=== PATIENT | female | born 1930 | race Caucasian/White ===

== ENCOUNTER 2017-01-02 06:08 | Inpatient (IN) | payer MEDICARE, OTHER ==
[2017-01-02] MEDS ORDERED: Albuterol/Ipratropium 3.0-0.5 MG/3 ML Neb Soln ONE (06:41)
[2017-01-02] MEDS ORDERED: Furosemide 100 MG/10 ML SDV ONE (06:46)
[2017-01-02] MEDS ORDERED: Morphine 2 MG/ML Syringe ONE (06:50)
[2017-01-02] MEDS ORDERED: Furosemide 100 MG/10 ML SDV IVPUSH ONE (06:57)
[2017-01-02] MEDS: Morphine 2 MG/ML Syringe IVPUSH PRN ×4 (06:58→07:15)
[2017-01-02] MEDS ORDERED: Albuterol/Ipratropium 3.0-0.5 MG/3 ML Neb Soln NEB ONE (06:58)
--- NOTE | 2017-01-02 07:22 | EDM.PDOC ---
ED HPI GENERAL MEDICAL PROBLEM - General Chief Complaint: General Stated Complaint: SOB Time Seen by Provider: 01/02/17 06:53 Source of Information: Reports: EMS, Family - History of Present Illness INITIAL COMMENTS - FREE TEXT/NARRATIVE: patient presents to ER in resp. failure, severe hypoxia. I spoke breifly with the daughter to establish code status, and she confirmed the patent was a DNR/ DNI. patient has a significant history of CHF, and has been progressive declining over the last month or so. I informed the daughter that without mechanical ventilation it is likely her mother would not survive this exacerbation. Daughter verbalized her understanding, and just wanted her mother to be comfortable. Onset: today Onset Date: 01/02/17 Duration: Minutes: Severity: severe Improves with: Reports: None Associated Symptoms: Reports: shortness of breath - Related Data Allergies Allergy/AdvReac Type Severity Reaction Status Date / Time Penicillins Allergy Rash Verified 01/02/17 07:06 procaine HCl [From Novocain] Allergy Shortness Verified 01/02/17 07:06 of Breath ACEINHIBITORS AdvReac Cough Verified 01/02/17 07:06 [ANOOP Inhibitors] acetaminophen [From Percocet] AdvReac Vomiting Verified 01/02/17 07:06 lisinopril AdvReac Nausea and Verified 01/02/17 07:06 Vomiting oxycodone HCl [From Percocet] AdvReac Vomiting Verified 01/02/17 07:06 simvastatin [From Zocor] AdvReac Nausea Verified 01/02/17 07:06 thiopental sodium AdvReac Lethargy Verified 01/02/17 07:06 [From Pentothal] zuleyka Allergy Shortness Uncoded 01/02/17 07:06 of Breath hormones AdvReac Abdominal Uncoded 01/02/17 07:06 Pain Home Meds: Home Meds Aspirin [Halfprin] 81 mg PO DAILY 09/14/15 [History] Bisoprolol/Hydrochlorothiazide [Ziac 5-6.25 MG] 1.5 tab PO DAILY 09/14/15 [ History] Fenofibrate 160 mg PO DAILY 09/14/15 [History] metFORMIN HCl [Metformin HCl] 1,000 mg PO BID 09/14/15 [History] Torsemide [Torsemide] 20 mg PO DAILY 01/02/17 [History] Past Medical History HEENT History: Reports: Impaired vision, Sinusitis Cardiovascular History: Reports: Aneurysm, Hypertension, Other (see below) Other Cardiovascular History: varicose veins EMERGENCY MEDICINE SPECIALIST History: Reports: Oncologic (Cancer) History: Reports: Other (see below) Other Oncologic History: skin cancer, unkown what type - Past Surgical History HEENT Surgical History: Reports: Cataract surgery Social & Family History - Family History Family Medical History: Noncontributory - Tobacco Use Smoking Status *Q: Never Smoker - Recreational Drug Use Recreational Drug Use: No ED ROS GENERAL - Review of Systems Review Of Systems: See Below Constitutional: Reports: diaphoresis HEENT: Reports: No symptoms Respiratory: Reports: Shortness of Breath Cardiovascular: Reports: No symptoms Endocrine: Reports: no symptoms GI/Abdominal: Reports: No symptoms Musculoskeletal: Reports: no symptoms Skin: Reports: mottled Neurological: Reports: Confusion Psychiatric: Reports: No symptoms ED EXAM, GENERAL - Physical Exam Exam: See Below Exam Limited By: Altered mental status General Appearance: severe distress, thin Respiratory/Chest: crackles, rales, rhonchi, accessory muscle use, prolonged expiration Cardiovascular: regular rate, rhythm GI/Abdominal: normal bowel sounds, soft Neurological: slow to respond Psychiatric: anxious Skin Exam: Cool, Cyanosis, Mottled (patient is slowly improveing with high flow oxygen, lasix and morphine, will continue to monitor.) Course - Orders/Labs/Meds Orders: Active Orders 24 hr Category Date Time Status RT Aerosol Therapy [RC] ASDIRECTED Care 01/02/17 06:58 Active CXR [Chest 1V Frontal] [CR] Stat Exams 01/02/17 06:57 Ordered Morphine Med 01/02/17 06:58 Active 2 mg IVPUSH Q20M PRN Medication Orders Morphine Sulfate (Morphine) 2 mg IVPUSH Q20M PRN PRN Reason: Anxiety Meds: Medications Generic Name Dose Route Start Last Admin Trade Name Freq PRN Reason Stop Dose Admin Morphine Sulfate 2 mg 01/02/17 06:58 Morphine IVPUSH Q20M PRN Anxiety Discontinued Medications Generic Name Dose Route Start Last Admin Trade Name Freq PRN Reason Stop Dose Admin Albuterol/Ipratropium Confirm 01/02/17 06:41 Duoneb 3.0-0.5 Mg/3 Ml Administered 01/02/17 06:42 Dose 3 ml .ROUTE .STK-MED ONE Albuterol/Ipratropium 3 ml 01/02/17 06:58 Duoneb 3.0-0.5 Mg/3 Ml NEB 01/02/17 06:59 ONETIME ONE Furosemide Confirm 01/02/17 06:46 Lasix Administered 01/02/17 06:47 Dose 100 mg .ROUTE .STK-MED ONE Furosemide 80 mg 01/02/17 06:57 Lasix IVPUSH 01/02/17 06:58 ONETIME ONE Morphine Sulfate Confirm 01/02/17 06:50 Morphine Administered 01/02/17 06:51 Dose 2 mg .ROUTE .STK-MED ONE Departure - Departure Time of Disposition: 07:36 Disposition: Admitted As Inpatient 66 Condition: serious Clinical Impression: CHF exacerbation Forms: ED Department Discharge - My Orders Last 24 Hours: My Active Orders 01/02/17 06:57 CXR [Chest 1V Frontal] [CR] Stat 01/02/17 06:58 RT Aerosol Therapy [RC] ASDIRECTED Morphine 2 mg IVPUSH Q20M PRN - Assessment/Plan Last 24 Hours: My Active Orders 01/02/17 06:57 CXR [Chest 1V Frontal] [CR] Stat 01/02/17 06:58 RT Aerosol Therapy [RC] ASDIRECTED Morphine 2 mg IVPUSH Q20M PRN
[2017-01-02] MEDS ORDERED: Acetaminophen 325 MG Tab PO PRN (08:26)
[2017-01-02] MEDS ORDERED: Ondansetron 4 MG/2 ML SDV IV PRN (08:26)
[2017-01-02 09:51] LABS: O2 DELIVERY DEVICE NON REBR MASK
[2017-01-02 09:52] LABS: BICARBONATE,ARTERIAL 22.1 mm/L (22.0-26.0); O2 FLOW RATE 10; O2 SATURATION ARTERIAL 96 % (95-98); PCO2 ARTERIAL 45 mm/Hg0 (35-45); PO2 ARTERIAL 95 mm/Hg (80-100)
[2017-01-02] MEDS: Enoxaparin 30 MG/0.3 ML Syringe SUBCUT SCH (13:36)
[2017-01-02] MEDS ORDERED: Furosemide 100 MG/10 ML SDV IVPUSH SCH (16:00)
[2017-01-02] MEDS ORDERED: Non-Formulary Medication 1 Each (Ezetimibe [Zetia] 10 MG) PO SCH (20:00)
[2017-01-02] MEDS: Furosemide 100 MG/10 ML SDV IVPUSH SCH (20:00)
[2017-01-03] MEDS: Furosemide 100 MG/10 ML SDV IVPUSH SCH ×2 (07:54→20:00)
[2017-01-03] MEDS: Aspirin 81 MG Tab.EC PO SCH (07:54)
[2017-01-03] MEDS: Enoxaparin 30 MG/0.3 ML Syringe SUBCUT SCH (07:54)
[2017-01-03] MEDS: Fenofibrate 160 MG Tab PO SCH (07:55)
[2017-01-03] MEDS ORDERED: metFORMIN 500 MG Tab PO SCH ×3 (08:00→17:30)
--- NOTE | 2017-01-03 09:01 | PN ---
DATE: 01/03/2017 S: Aylin Sanchez is an elderly white female, came in with acute left ventricular congestive heart failure. She was resuscitated in the ER then brought to the floor. O: GENERAL: This morning, the patient is alert and orientated, says she feels good. NECK: Supple. CHEST: Crepitus bilaterally, crackly. CARDIAC: Sounds are okay. EXTREMITIES: No edema. 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 ALEJANDRINA/KRYSTEN /[id number]
[2017-01-03] MEDS ORDERED: Iopamidol 755 Mg/ML 100 ML Bottle IVPUSH ONE (09:27)
[2017-01-03] MEDS: Potassium Chloride 10 MEQ Tab.ER PO SCH (17:40)
[2017-01-04] MEDS: Enoxaparin 30 MG/0.3 ML Syringe SUBCUT SCH (08:01)
[2017-01-04] MEDS: Aspirin 81 MG Tab.EC PO SCH (08:02)
[2017-01-04] MEDS: Furosemide 100 MG/10 ML SDV IVPUSH SCH ×2 (08:02→19:52)
[2017-01-04] MEDS: Potassium Chloride 10 MEQ Tab.ER PO SCH (08:02)
[2017-01-04] MEDS: Fenofibrate 160 MG Tab PO SCH (08:02)
--- NOTE | 2017-01-05 07:49 | PN ---
DATE: 01/04/2017 S: Aylin Sanchez came in with acute congestive heart failure. Says she feels better today. O: NECK: Supple. CHEST: Little crepitus bilaterally. CARDIAC: Sounds are better. EXTREMITIES: She has no edema. ASSESSMENT: ACUTE LEFT VENTRICULAR SYSTOLIC CONGESTIVE HEART FAILURE, RESOLVING. ECHO SHOWS EJECTION FRACTION OF 55%, SO SHE MAY HAVE SOMETHING LIKE BROKEN HEART SYNDROME. P: Continue IV Lasix. ALEJANDRINA/KRYSTEN /[id number]
[2017-01-05] MEDS: Furosemide 100 MG/10 ML SDV IVPUSH SCH (08:29)
[2017-01-05] MEDS: Fenofibrate 160 MG Tab PO SCH (08:30)
[2017-01-05] MEDS: Aspirin 81 MG Tab.EC PO SCH (08:30)
[2017-01-05] MEDS: Potassium Chloride 10 MEQ Tab.ER PO SCH (08:30)
[2017-01-05] MEDS: Enoxaparin 30 MG/0.3 ML Syringe SUBCUT SCH (08:31)
[2017-01-05 08:32] VITALS: BP 160/74
--- NOTE | 2017-01-08 07:51 | DISCH ---
HISTORY: This elderly white female, presents [facility] with severe sudden onset congestive heart failure. She was given IV morphine, IV Lasix in the ER and responded nicely. Admitted to the hospital, placed on telemetry, look good. Continue IV Lasix. At the time of discharge, chest was relatively clear. She felt great. Blood pressure was good. Panel looked good. ProBNP was 4300, I did not repeat that. Echocardiogram showed ejection fraction of 55% with moderate aortic regurgitation. Rest of the lab and x-ray as per chart. DISPOSITION: The patient discharged home. She will be seen in my clinic next week, at that time, we will do a panel 8 on her and re-evaluate her. DISCHARGE MEDICATIONS: Include home medications plus Lasix 40 b.i.d. DISCHARGE DIAGNOSIS: 1. LEFT VENTRICULAR SYSTOLIC CONGESTIVE HEART FAILURE. 2. DIABETES MELLITUS. 3. HYPERLIPIDEMIA. 4. HYPERTENSION. ALEJANDRINA/KRYSTEN /[id number]
== END 2017-01-05 13:00 | disposition home or self-care (01) | DRG 293 ==
LOC: CC.ED 06:08 → CC.MS 07:44 → UNDOADMIN 08:18 → CC.MS 08:26 → UNDOADMIN 08:26 → UNDODISIN 01-05 13:00
PROVIDERS: ADMIT Nurse Practitioner Family; ATTEND General Practice
DX: I50.9 Heart failure, unspecified (principal); I11.0 Hypertensive heart disease with heart failure; I50.1 Left ventricular failure, unspecified; E11.9 Type 2 diabetes mellitus without complications; Z79.84 Long term (current) use of oral hypoglycemic drugs; E78.5 Hyperlipidemia, unspecified; Z66 Do not resuscitate; Z79.82 Long term (current) use of aspirin; R79.1 Abnormal coagulation profile
CPT/HCPCS: 36415; 51702; 71010; 80053; 83880; 84484; 85025; 93005; 93010; 96374; 96375; 99285; J1940; J2270 ×4; 36600; 71275; 80048; 81001; 82803; 83735; 85379; 86140; 93306; 94760; 94761; A9270-GY; J1650; Q9967

== ENCOUNTER 2020-04-04 05:48 | Inpatient (IN) | payer MEDICARE, OTHER ==
[~2020-04-04 05:48] MED LIST: Albuterol/Ipratropium 3.0-0.5 MG/3 ML Neb Soln ONE
[2020-04-04] MEDS ORDERED: Furosemide 40 MG/4 ML VIAL ONE (05:52)
[2020-04-04] MEDS ORDERED: methylPREDNISolone Sodium Succinate 125 MG/2 ML SDV ONE (05:52)
[2020-04-04] MEDS ORDERED: Morphine 2 MG/ML SYRINGE ONE (05:53)
[2020-04-04] MEDS ORDERED: Albuterol/Ipratropium 3.0-0.5 MG/3 ML Neb Soln NEB ONE (06:00)
[2020-04-04] MEDS ORDERED: Furosemide 40 MG/4 ML VIAL IVPUSH ONE (06:08)
[2020-04-04] MEDS ORDERED: methylPREDNISolone Sodium Succinate 125 MG/2 ML SDV IVPUSH ONE (06:08)
[2020-04-04] MEDS ORDERED: Morphine 2 MG/ML SYRINGE IVPUSH ONE (06:08)
[2020-04-04] MEDS ORDERED: Nitroglycerin/D5W 25 MG/250 ML BOTTLE IV SCH (06:30)
--- NOTE | 2020-04-04 07:05 | EDM.PDOC ---
ED HPI GENERAL MEDICAL PROBLEM - General Chief Complaint: Respiratory Problem Stated Complaint: difficulty breathing Time Seen by Provider: 04/04/20 06:08 Source of Information: Reports: Patient, Family History Limitations: Reports: Respiratory Distress - History of Present Illness INITIAL COMMENTS - FREE TEXT/NARRATIVE: Patient presents per EMS with complaints of shortness of breath. States awoke approximately 2 hours prior with sudden onset SOB. Called EMS as symptoms were not improving. Oxygen sats on arrival were 75% on room air. Was given neb treatment immediately on arrival. Daughter able to provide more history. Does have CHF, had this happen 3 years ago as well and "didn't think she was going to make it then, they gave her 10 minutes but she pulled through". Does normally take 40 mg of Lasix daily, has been compliant with her meds. Is DNR/DNI. Onset: Today, Sudden Duration: Hour(s):, Constant Location: Reports: Chest Severity: Severe Associated Symptoms: Reports: Cough, Malaise, Shortness of Breath, Weakness. Denies: Confusion, Chest Pain, cough w sputum, Diaphoresis, Headaches, Nausea/Vomiting Treatments WELDER METAL FAB: Reports: Oxygen, See EMS Report - Related Data Allergies Allergy/AdvReac Type Severity Reaction Status Date / Time Penicillins Allergy Rash Verified 04/04/20 06:21 procaine HCl [From Novocain] Allergy Shortness Verified 04/04/20 06:21 of Breath ACEINHIBITORS AdvReac Cough Verified 04/04/20 06:21 [ANOOP Inhibitors] lisinopril AdvReac Nausea and Verified 04/04/20 06:21 Vomiting oxycodone HCl [From Percocet] AdvReac Vomiting Verified 04/04/20 06:21 simvastatin [From Zocor] AdvReac Nausea Verified 04/04/20 06:21 thiopental sodium AdvReac Lethargy Verified 04/04/20 06:21 [From Pentothal] zuleyka Allergy Shortness Uncoded 04/04/20 06:21 of Breath hormones AdvReac Abdominal Uncoded 04/04/20 06:21 Pain Home Meds: Home Meds Aspirin [Halfprin] 81 mg PO BEDTIME 09/14/15 [History] Bisoprolol/Hydrochlorothiazide [Ziac 5-6.25 MG] 1 each PO QAM 01/03/17 [History] metFORMIN [Glucophage] 500 mg PO BID 01/03/17 [History] Potassium Chloride [Klor-Con 10] 20 meq PO DAILY #30 tab.er 01/05/17 [Rx] Cholecalciferol (Vitamin D3) [Vitamin D] 5,000 unit PO DAILY 04/04/20 [History] Ferrous Sulfate [Iron] 325 mg PO BID 04/04/20 [History] Flaxseed Oil [Flax Oil] 1,000 mg PO BEDTIME 04/04/20 [History] Furosemide [Lasix] 40 mg PO DAILY 04/04/20 [History] Losartan [Cozaar] 50 mg PO BID 04/04/20 [History] Magnesium 250 mg PO BID 04/04/20 [History] Ubidecarenone [Co Q-10] 100 mg PO BID 04/04/20 [History] Vit C/E/Zn/Coppr/Lutein/Zeaxan [Preservision Areds 2 Softgel] 1 tab PO DAILY 04/04/20 [History] cloNIDine [Catapres] 0.1 mg PO BID 04/04/20 [History] Past Medical History HEENT History: Reports: Impaired Vision, Sinusitis Cardiovascular History: Reports: Aneurysm, Heart Murmur, Hypertension, Other (See Below) Other Cardiovascular History: varicose veins [employer] History: Reports: Hematologic History: Reports: Other (See Below) Other Hematologic History: positive factor 5 leiden Oncologic (Cancer) History: Reports: Other (See Below) Other Oncologic History: skin cancer, unkown what type - Past Surgical History HEENT Surgical History: Reports: Cataract Surgery Social & Family History - Family History Family Medical History: Noncontributory - Caffeine Use Caffeine Use: Reports: Coffee Other Caffeine Use: 1 cpd ED ROS GENERAL - Review of Systems Review Of Systems: See Below Constitutional: Reports: Malaise, Weakness, Fatigue. Denies: Fever, Chills HEENT: Denies: Ear Pain, Rhinitis, Sinus Problem, Throat Pain Respiratory: Reports: Shortness of Breath, Cough Cardiovascular: Denies: Chest Pain, Edema, Lightheadedness Endocrine: Reports: Fatigue GI/Abdominal: Denies: Abdominal Pain, Constipation, Diarrhea, Nausea, Vomiting : Reports: No Symptoms Musculoskeletal: Reports: No Symptoms Skin: Reports: No Symptoms Neurological: Reports: No Symptoms ED EXAM, GENERAL - Physical Exam Exam: See Below Exam Limited By: Respiratory Distress General Appearance: Alert, WD/WN, Severe Distress Ears: Normal External Exam, Normal TMs Nose: Normal Inspection, Normal Mucosa, No Blood Throat/Mouth: Normal Inspection, Normal Oropharynx Head: Normocephalic Neck: Normal Inspection, Supple, Non-Tender Respiratory/Chest: Respiratory Distress, Crackles Cardiovascular: Regular Rate, Rhythm GI/Abdominal: Normal Bowel Sounds, Soft, Non-Tender Extremities: Normal Inspection, No Pedal Edema Neurological: Alert, Oriented Skin Exam: Warm, Dry Course - Vital Signs Last Recorded V/S: Last Vital Signs Temp 95.9 F L 04/04/20 06:15 Pulse 71 04/04/20 07:45 Resp 34 H 04/04/20 07:45 BP 101/60 04/04/20 07:45 Pulse Ox 92 L 04/04/20 07:45 - Orders/Labs/Meds Orders: Active Orders 24 hr Category Date Time Status RT Aerosol Therapy [RC] ASDIRECTED Care 04/04/20 06:30 Active Urinary Catheter Assessment [RC] ASDIRECTED Care 04/04/20 07:03 Active Urinary Catheter Insertion [Insert Urinary Catheter] [ Care 04/04/20 07:15 Ordered OM.PC] Q24H Chest 1V Frontal [CR] Routine Exams 04/04/20 Taken Nitroglycerin/D5W [Nitroglycerin 25 MG/D5W 250 ML] Med 04/04/20 06:30 Active 25 mg in 250 ml IV TITRATE Medication Orders Nitroglycerin/Dextrose (Nitroglycerin 25 Mg/D5w 250 Ml) 25 mg in 250 mls @ 6 m ls/hr IV TITRATE LANIE; Protocol Last Infusion: 04/04/20 07:15 Dose: 5 mcg/min, 3 mls/hr Documented by: Infusion: 04/04/20 06:48 Dose: 10 mcg/min, 6 mls/hr Documented by: Admin: 04/04/20 06:30 Dose: 5 mcg/min, 3 mls/hr Documented by: MICHAEL Labs: Laboratory Tests 04/04/20 04/04/20 04/04/20 Range/Units 06:35 06:35 06:35 WBC 18.6 H (5.0-10.0) 10^3/uL RBC 4.53 (4.00-5.50) 10^6/uL Hgb 13.8 (12.0-16.0) g/dL Hct 42.8 (37.0-47.0) % MCV 94.5 H (82.0-94.0) fL MCH 30.5 (27.0-32.0) pg MCHC 32.2 L (33.0-38.0) g/dL RDW Coeff of Leilani 13.4 (11.0-15.0) % Plt Count 297 (150-400) 10^3/uL Neut % (Auto) 31.8 L (35-85) % Lymph % (Auto) 60.5 H (10-55) % [place] % (Auto) 5.7 (0-16) % Eos % (Auto) 1.8 (0-5) % Baso % (Auto) 0.2 (0-3) % Neut # (Auto) 5.91 (1.80-7.00) 10^3/uL Lymph # (Auto) 11.25 H (1.00-4.80) 10^3/uL [place] # (Auto) 1.06 H (0.00-0.80) 10^3/uL Eos # (Auto) 0.34 (0.00-0.45) 10^3/uL Baso # (Auto) 0.03 10^3/uL D-Dimer, Quantitative 14.13 H (0.00-0.50) Sodium 137 (136-145) mEq/L Potassium 4.1 (3.5-5.0) mEq/L Chloride 100 (98-106) mEq/L Carbon Dioxide 22 (21-32) mmol/L BUN 38 H (7-18) mg/dL Creatinine 1.8 H (0.6-1.0) mg/dL Est Cr Clr Drug Dosing 18.30 mL/min Estimated GFR (MDRD) 26 L (>=60) mL/min Glucose 446 H* D (75-99) mg/dL Calcium 8.9 (8.4-10.1) mg/dL Total Bilirubin 0.4 (0.0-1.0) mg/dL AST 17 (15-37) U/L ALT 16 (12-78) U/L Alkaline Phosphatase 87 (46-116) U/L Lactate Dehydrogenase 181 (100-190) U/L Creatine Kinase 49 (21-215) U/L Troponin I 0.120 H (0.00-0.06) ng/mL C-Reactive Protein 0.2 (0.2-0.8) mg/dL NT-Pro-B Natriuret Pep 3022 H (0-1000) pg/mL Total Protein 7.7 (6.4-8.2) g/dL Albumin 3.6 (3.4-5.0) g/dL COVID-19 (ALEXI) (NEGATIVE) 04/04/20 Range/Units 07:12 WBC (5.0-10.0) 10^3/uL RBC (4.00-5.50) 10^6/uL Hgb (12.0-16.0) g/dL Hct (37.0-47.0) % MCV (82.0-94.0) fL MCH (27.0-32.0) pg MCHC (33.0-38.0) g/dL RDW Coeff of Leilani (11.0-15.0) % Plt Count (150-400) 10^3/uL Neut % (Auto) (35-85) % Lymph % (Auto) (10-55) % [place] % (Auto) (0-16) % Eos % (Auto) (0-5) % Baso % (Auto) (0-3) % Neut # (Auto) (1.80-7.00) 10^3/uL Lymph # (Auto) (1.00-4.80) 10^3/uL [place] # (Auto) (0.00-0.80) 10^3/uL Eos # (Auto) (0.00-0.45) 10^3/uL Baso # (Auto) 10^3/uL D-Dimer, Quantitative (0.00-0.50) Sodium (136-145) mEq/L Potassium (3.5-5.0) mEq/L Chloride (98-106) mEq/L Carbon Dioxide (21-32) mmol/L BUN (7-18) mg/dL Creatinine (0.6-1.0) mg/dL Est Cr Clr Drug Dosing mL/min Estimated GFR (MDRD) (>=60) mL/min Glucose (75-99) mg/dL Calcium (8.4-10.1) mg/dL Total Bilirubin (0.0-1.0) mg/dL AST (15-37) U/L ALT (12-78) U/L Alkaline Phosphatase (46-116) U/L Lactate Dehydrogenase (100-190) U/L Creatine Kinase (21-215) U/L Troponin I (0.00-0.06) ng/mL C-Reactive Protein (0.2-0.8) mg/dL NT-Pro-B Natriuret Pep (0-1000) pg/mL Total Protein (6.4-8.2) g/dL Albumin (3.4-5.0) g/dL COVID-19 (ALEXI) Negative (NEGATIVE) Meds: Medications Generic Name Dose Route Start Last Admin Trade Name Freq PRN Reason Stop Dose Admin Nitroglycerin/Dextrose 25 mg in 250 mls @ 6 mls/hr 04/04/20 06:30 04/04/20 07:15 Nitroglycerin 25 Mg/D5w 250 Ml IV 5 mcg/min TITRATE LANIE 3 mls/hr Infusion Protocol 10 MCG/MIN Discontinued Medications Generic Name Dose Route Start Last Admin Trade Name Freq PRN Reason Stop Dose Admin Albuterol/Ipratropium Confirm 04/04/20 05:39 04/04/20 06:37 Duoneb 3.0-0.5 Mg/3 Ml Administered 04/04/20 05:40 Not Given Dose 3 ml .ROUTE .STK-MED ONE Albuterol/Ipratropium 3 ml 04/04/20 06:00 04/04/20 05:50 Duoneb 3.0-0.5 Mg/3 Ml NEB 04/04/20 06:01 3 ml ONETIME ONE Administration Furosemide Confirm 04/04/20 05:52 04/04/20 06:37 Lasix Administered 04/04/20 05:53 Not Given Dose 40 mg .ROUTE .STK-MED ONE Furosemide 40 mg 04/04/20 06:08 04/04/20 06:12 Lasix IVPUSH 04/04/20 06:09 40 mg ONETIME ONE Administration Methylprednisolone Sodium Succinate Confirm 04/04/20 05:52 04/04/20 06:38 Solu-Medrol Administered 04/04/20 05:53 Not Given Dose 125 mg .ROUTE .STK-MED ONE Methylprednisolone Sodium Succinate 125 mg 08/02/20 06:08 04/04/20 06:12 Solu-Medrol IVPUSH 04/04/20 06:09 125 mg ONETIME ONE Administration Morphine Sulfate Confirm 04/04/20 05:53 04/04/20 06:38 Morphine Administered 04/04/20 05:54 Not Given Dose 2 mg .ROUTE .STK-MED ONE Morphine Sulfate 1 mg 04/04/20 06:08 04/04/20 06:12 Morphine IVPUSH 04/04/20 06:09 1 mg ONETIME ONE Administration - Re-Assessments/Exams Free Text/Narrative Re-Assessment/Exam: 04/04/20 07:00 Patient is breathing easier now. conversing with family by phone. Still tachypneic. Oxygen sat 89-90% on 15 liters. Has been given Lasix 40 mg IV, duoneb treatment, Solu Medrol and now on a nitro drip. Blood pressure not tolerating the nitro drip and did have to be reduced from 10 to 5 mcg as dropped to 90s/50s. Lab results reviewed. WBC is high at 18.6. Creatinine 1.8. ProBNP 3022. Troponin 0.120. Admission versus transfer discussed with daughter now that is resting a bit more comfortably. Daughter states would like to keep her here. Is aware that would have more intensive care at tertiary facility but expresses mostly just wants to be kept comfortable. Is a DNR/DNI. 04/04/20 08:06 Patient is improving. Oxygen sats are 92% on 10 liters now. Color improved. Blood pressure maintaining on 5 mcg. Will admit to inpatient. Departure - Departure Time of Disposition: 08:08 Disposition: Admitted As Inpatient 66 Condition: Poor Clinical Impression: Pulmonary edema, Respiratory distress CHF exacerbation Qualifiers: Qualified Code(s): I50.23 - Acute on chronic systolic (congestive) heart failure - Discharge Information *PRESCRIPTION DRUG MONITORING PROGRAM REVIEWED*: No *COPY OF PRESCRIPTION DRUG MONITORING REPORT IN PATIENT LUKE: No Forms: ED Department Discharge Sepsis Event Note (ED) - Evaluation Sepsis Screening Result: No Definite Risk - Focused Exam Vital Signs: Vital Signs Temp Pulse Resp BP Pulse Ox 04/04/20 07:45 71 34 H 101/60 92 L 04/04/20 07:30 75 35 H 103/64 92 L 04/04/20 07:15 77 38 H 94/60 91 L 04/04/20 07:09 86 32 H 102/70 88 L 04/04/20 06:57 85 40 H 138/75 88 L 04/04/20 06:44 96 42 H 157/83 H 86 L 04/04/20 06:26 101 H 40 H 186/92 H 89 L 04/04/20 06:20 105 H 43 H 187/98 H 90 L 04/04/20 06:15 95.9 F L 105 H 42 H 186/87 H 85 L - Problem List & Annotations (1) Respiratory distress SNOMED Code(s): 299401825 Code(s): R06.03 - ACUTE RESPIRATORY DISTRESS Status: Acute Priority: High Current Visit: Yes (2) Pulmonary edema SNOMED Code(s): 54156034 Code(s): J81.1 - CHRONIC PULMONARY EDEMA Status: Acute Priority: High Current Visit: Yes (3) CHF exacerbation SNOMED Code(s): 696942008, 35576127518374 Code(s): I50.9 - HEART FAILURE, UNSPECIFIED Status: Acute Priority: High Current Visit: Yes Qualifiers: Qualified Code(s): I50.23 - Acute on chronic systolic (congestive) heart failure (4) Palliative care patient SNOMED Code(s): 803834523, 266056780 Code(s): Z51.5 - ENCOUNTER FOR PALLIATIVE CARE Status: Acute Priority: High Current Visit: Yes - Problem List Review Problem List Initiated/Reviewed/Updated: Yes - My Orders Last 24 Hours: My Active Orders 04/04/20 Chest 1V Frontal [CR] Routine 04/04/20 06:30 RT Aerosol Therapy [RC] ASDIRECTED Nitroglycerin/D5W [Nitroglycerin 25 MG/D5W 250 ML] 25 mg in 250 ml IV TITRATE 04/04/20 07:03 Urinary Catheter Assessment [RC] ASDIRECTED 04/04/20 07:15 Urinary Catheter Insertion [Insert Urinary Catheter] [OM.PC] Q24H - Assessment/Plan Admission H&P: Please use this note as an admission H&P Last 24 Hours: My Active Orders 04/04/20 Chest 1V Frontal [CR] Routine 04/04/20 06:30 RT Aerosol Therapy [RC] ASDIRECTED Nitroglycerin/D5W [Nitroglycerin 25 MG/D5W 250 ML] 25 mg in 250 ml IV TITRATE 04/04/20 07:03 Urinary Catheter Assessment [RC] ASDIRECTED 04/04/20 07:15 Urinary Catheter Insertion [Insert Urinary Catheter] [OM.PC] Q24H Assessment:: Pulmonary edema CHF exacerbation Palliative care patient Plan: Admit inpatient. Continue IV Lasix BID. Nitro drip. Will give Lovenox dose today to cover for PE as d-dimer is high and unable to do CTA due to creatinine/kidney function. Again discussed with daughter about transfer for other studies to determine if has PE, does not want transfer. Wants her to be comfortable. "every extra day with her is a blessing"
[2020-04-04] MEDS ORDERED: Acetaminophen 325 MG Tab PO PRN (09:01)
[2020-04-04] MEDS ORDERED: Enoxaparin 80 MG/0.8 ML Syringe SUBCUT ONE (09:01)
[2020-04-04] MEDS ORDERED: Sodium Chloride 0.9% 10 ML Syringe FLUSH PRN (09:01)
[2020-04-04] MEDS ORDERED: Ondansetron 4 MG Tab.DIS PO PRN (09:01)
[2020-04-04] MEDS ORDERED: Ondansetron 4 MG/2 ML SDV IV PRN (09:01)
[2020-04-04] MEDS ORDERED: Enoxaparin 60 MG/0.6 ML Syringe SUBCUT ONE (09:37)
[2020-04-04] MEDS ORDERED: Nitroglycerin 2% Oint 1 GM UD Packet TOP SCH (10:00)
[2020-04-04] MEDS: Nitroglycerin 2% Oint 1 GM UD Packet TOP SCH ×2 (10:56→17:25)
[2020-04-04] MEDS: metFORMIN 500 MG Tab PO SCH (17:25)
[2020-04-04] MEDS: Aspirin 81 MG Tab.EC PO SCH (19:42)
[2020-04-04] MEDS: cloNIDine 0.1 MG Tab PO SCH ×2 (19:42→19:51)
[2020-04-04] MEDS: Ferrous Sulfate 324 MG Tab.EC PO SCH (19:43)
[2020-04-04] MEDS: Furosemide 40 MG/4 ML VIAL IVPUSH SCH (19:44)
[2020-04-04] MEDS: Losartan 25 MG Tab PO SCH (19:51)
[2020-04-04] MEDS ORDERED: Non-Formulary Medication 1 Each (Ubidecarenone [Co Q-10] 100 MG) PO SCH (20:00)
[2020-04-05] MEDS: Nitroglycerin 2% Oint 1 GM UD Packet TOP SCH ×3 (01:00→17:03)
[2020-04-05] MEDS: Potassium Chloride 10 MEQ Tab.ER PO SCH (07:32)
[2020-04-05] MEDS: Cholecalciferol (Vitamin D3) 25 MCG Tab PO SCH (07:32)
[2020-04-05] MEDS: Furosemide 40 MG/4 ML VIAL IVPUSH SCH ×2 (07:32→18:49)
[2020-04-05] MEDS: Losartan 25 MG Tab PO SCH ×2 (07:32→20:01)
[2020-04-05] MEDS: cloNIDine 0.1 MG Tab PO SCH (07:33)
[2020-04-05] MEDS: Ferrous Sulfate 324 MG Tab.EC PO SCH ×2 (07:53→20:01)
[2020-04-05] MEDS: metFORMIN 500 MG Tab PO SCH ×2 (08:08→17:03)
[2020-04-05] MEDS: Enoxaparin 60 MG/0.6 ML Syringe SUBCUT SCH (09:37)
--- NOTE | 2020-04-05 11:04 | PCM.PN ---
- General Info Date of Service: 04/05/20 Admission Dx/Problem (Free Text): CHF exacerbation Elevated D-dimer Elevated Troponin Functional Status: Reports: Pain Controlled - Review of Systems General: Reports: No Symptoms HEENT: Reports: No Symptoms Pulmonary: Reports: Shortness of Breath. Denies: Pleuritic Chest Pain Cardiovascular: Reports: Dyspnea on Exertion (chronic). Denies: Chest Pain Gastrointestinal: Reports: No Symptoms Genitourinary: Reports: No Symptoms Musculoskeletal: Reports: No Symptoms Neurological: Reports: No Symptoms Psychiatric: Reports: No Symptoms - Patient Data Vitals - Most Recent: Last Vital Signs Temp 98.1 F 04/05/20 08:00 Pulse 72 04/05/20 04:00 Resp 20 04/05/20 08:00 BP 127/55 L 04/05/20 08:00 Pulse Ox 92 L 04/05/20 08:00 Weight - Most Recent: 128 lb 12.8 oz I&O - Last 24 Hours: Intake & Output 04/04/20 04/05/20 04/05/20 22:59 06:59 14:59 Intake Total 900 700 Output Total 600 975 800 Balance 300 -275 -800 Lab Results Last 24 Hours: Laboratory Results - last 24 hr 04/04/20 04/04/20 04/05/20 Range/Units 12:05 21:32 07:25 WBC 13.1 H (5.0-10.0) 10^3/uL RBC 3.85 L (4.00-5.50) 10^6/uL Hgb 11.6 L (12.0-16.0) g/dL Hct 35.6 L (37.0-47.0) % MCV 92.5 (82.0-94.0) fL MCH 30.1 (27.0-32.0) pg MCHC 32.6 L (33.0-38.0) g/dL RDW Coeff of Leilani 13.2 (11.0-15.0) % Plt Count 198 (150-400) 10^3/uL Neut % (Auto) 77.4 (35-85) % Lymph % (Auto) 14.2 (10-55) % [place] % (Auto) 8.1 (0-16) % Eos % (Auto) 0.2 (0-5) % Baso % (Auto) 0.1 (0-3) % Neut # (Auto) 10.11 H (1.80-7.00) 10^3/uL Lymph # (Auto) 1.85 (1.00-4.80) 10^3/uL [place] # (Auto) 1.06 H (0.00-0.80) 10^3/uL Eos # (Auto) 0.02 (0.00-0.45) 10^3/uL Baso # (Auto) 0.01 10^3/uL Sodium (136-145) mEq/L Potassium (3.5-5.0) mEq/L Chloride (98-106) mEq/L Carbon Dioxide (21-32) mmol/L BUN (7-18) mg/dL Creatinine (0.6-1.0) mg/dL Est Cr Clr Drug Dosing mL/min Estimated GFR (MDRD) (>=60) mL/min Glucose (75-99) mg/dL POC Glucose 277 H (75-105) mg/dl Calcium (8.4-10.1) mg/dL Troponin I 39.427 H* (0.00-0.06) ng/mL NT-Pro-B Natriuret Pep (0-1000) pg/mL 04/05/20 Range/Units 07:25 WBC (5.0-10.0) 10^3/uL RBC (4.00-5.50) 10^6/uL Hgb (12.0-16.0) g/dL Hct (37.0-47.0) % MCV (82.0-94.0) fL MCH (27.0-32.0) pg MCHC (33.0-38.0) g/dL RDW Coeff of Leilani (11.0-15.0) % Plt Count (150-400) 10^3/uL Neut % (Auto) (35-85) % Lymph % (Auto) (10-55) % [place] % (Auto) (0-16) % Eos % (Auto) (0-5) % Baso % (Auto) (0-3) % Neut # (Auto) (1.80-7.00) 10^3/uL Lymph # (Auto) (1.00-4.80) 10^3/uL [place] # (Auto) (0.00-0.80) 10^3/uL Eos # (Auto) (0.00-0.45) 10^3/uL Baso # (Auto) 10^3/uL Sodium 138 (136-145) mEq/L Potassium 4.1 (3.5-5.0) mEq/L Chloride 101 (98-106) mEq/L Carbon Dioxide 25 (21-32) mmol/L BUN 40 H (7-18) mg/dL Creatinine 1.5 H (0.6-1.0) mg/dL Est Cr Clr Drug Dosing 21.96 mL/min Estimated GFR (MDRD) 33 L (>=60) mL/min Glucose 150 H D (75-99) mg/dL POC Glucose (75-105) mg/dl Calcium 9.3 (8.4-10.1) mg/dL Troponin I 17.345 H* (0.00-0.06) ng/mL NT-Pro-B Natriuret Pep 20491 H (0-1000) pg/mL Med Orders - Current: Current Medications Acetaminophen (Tylenol) 650 mg PO Q4H PRN PRN Reason: Pain (Mild 1-3)/fever Aspirin (Halfprin) 81 mg PO BEDTIME [facility] Last Admin: 04/04/20 19:42 Dose: 81 mg Documented by: Bisoprolol Fumarate/HCTZ (Ziac 5-6.25 Mg) 1 tab PO QAM [facility] Last Admin: 04/05/20 07:53 Dose: 1 tab Documented by: Cholecalciferol (Vitamin D3) 125 mcg PO DAILY [facility] Last Admin: 04/05/20 07:32 Dose: 125 mcg Documented by: Enoxaparin Sodium (Lovenox) 60 mg SUBCUT DAILY [facility] Last Admin: 04/05/20 09:37 Dose: 60 mg Documented by: Ferrous Sulfate (Ferrous Sulfate) 324 mg PO BID [facility] Last Admin: 04/05/20 07:53 Dose: 324 mg Documented by: Furosemide (Lasix) 40 mg IVPUSH BID [facility] Last Admin: 04/05/20 07:32 Dose: 40 mg Documented by: Losartan Potassium (Cozaar) 50 mg PO BID [facility] Last Admin: 04/05/20 07:32 Dose: 50 mg Documented by: Magnesium Oxide (Magnesium Oxide) 250 mg PO BID@1000,2200 [facility] Last Admin: 04/05/20 09:37 Dose: 250 mg Documented by: Metformin HCl (Glucophage) 500 mg PO BIDMEALS [facility] Last Admin: 04/05/20 08:08 Dose: 500 mg Documented by: Nitroglycerin (Nitro-Bid 2%) 0 gm TOP Q8H [facility] Last Admin: 04/05/20 09:37 Dose: 1 gm Documented by: Ondansetron HCl (Zofran Odt) 4 mg PO Q4H PRN PRN Reason: nausea, able to take PO Ondansetron HCl (Zofran) 4 mg IV Q4H PRN PRN Reason: Nausea/Vomiting Potassium Chloride (Klor-Con 10) 20 meq PO DAILY [facility] Last Admin: 04/05/20 07:32 Dose: 20 meq Documented by: Sodium Chloride (Saline Flush) 10 ml FLUSH ASDIRECTED PRN PRN Reason: Keep Vein Open Discontinued Medications Albuterol/Ipratropium (Duoneb 3.0-0.5 Mg/3 Ml) Confirm Administered Dose 3 ml .ROUTE .STK-MED ONE Stop: 04/04/20 05:40 Last Admin: 04/04/20 06:37 Dose: Not Given Documented by: Albuterol/Ipratropium (Duoneb 3.0-0.5 Mg/3 Ml) 3 ml NEB ONETIME ONE Stop: 04/04/20 06:01 Last Admin: 04/04/20 05:50 Dose: 3 ml Documented by: Clonidine HCl (Catapres) 0.1 mg PO BID [facility] Last Admin: 04/05/20 07:33 Dose: 0.1 mg Documented by: Enoxaparin Sodium (Lovenox) 80 mg SUBCUT NOW ONE Stop: 04/04/20 09:02 Last Admin: 04/04/20 10:22 Dose: Not Given Documented by: Enoxaparin Sodium (Lovenox) 60 mg SUBCUT NOW ONE Stop: 04/04/20 09:38 Last Admin: 04/04/20 10:55 Dose: 60 mg Documented by: Furosemide (Lasix) Confirm Administered Dose 40 mg .ROUTE .STK-MED ONE Stop: 04/04/20 05:53 Last Admin: 04/04/20 06:37 Dose: Not Given Documented by: Furosemide (Lasix) 40 mg IVPUSH ONETIME ONE Stop: 04/04/20 06:09 Last Admin: 04/04/20 06:12 Dose: 40 mg Documented by: Nitroglycerin/Dextrose (Nitroglycerin 25 Mg/D5w 250 Ml) 25 mg in 250 mls @ 6 mls/hr IV TITRATE LANIE; Protocol Last Infusion: 04/04/20 07:15 Dose: 5 mcg/min, 3 mls/hr Documented by: Methylprednisolone Sodium Succinate (Solu-Medrol) Confirm Administered Dose 125 mg .ROUTE .STK-MED ONE Stop: 04/04/20 05:53 Last Admin: 04/04/20 06:38 Dose: Not Given Documented by: Methylprednisolone Sodium Succinate (Solu-Medrol) 125 mg IVPUSH ONETIME ONE Stop: 04/04/20 06:09 Last Admin: 04/04/20 06:12 Dose: 125 mg Documented by: Morphine Sulfate (Morphine) Confirm Administered Dose 2 mg .ROUTE .STK-MED ONE Stop: 04/04/20 05:54 Last Admin: 04/04/20 06:38 Dose: Not Given Documented by: Morphine Sulfate (Morphine) 1 mg IVPUSH ONETIME ONE Stop: 04/04/20 06:09 Last Admin: 04/04/20 06:12 Dose: 1 mg Documented by: Nitroglycerin (Nitro-Bid 2%) 0 gm TOP Q8H [facility] Non-Formulary Medication (Ubidecarenone [Co Q-10]) 100 mg PO BID [facility] - Exam General: Alert, Oriented Lungs: Normal Respiratory Effort, Crackles (clearing). No: Stridor, Wheezing Cardiovascular: Regular Rate, Regular Rhythm GI/Abdominal Exam: Normal Bowel Sounds, Soft, Non-Tender Extremities: Normal Inspection, Non-Tender, No Pedal Edema Skin: Warm, Dry, Intact Wound/Incisions: Healing Well Neurological: No New Focal Deficit Psy/Mental Status: Alert, Normal Affect, Normal Mood Sepsis Event Note - Evaluation Sepsis Screening Result: No Definite Risk - Focused Exam Vital Signs: Vital Signs Temp Pulse Resp BP BP Pulse Ox 04/05/20 08:00 98.1 F 20 127/55 L 92 L 04/05/20 07:33 127/55 L 04/05/20 07:32 127/55 L 04/05/20 06:35 92 L 04/05/20 04:00 97.7 F 72 20 132/53 L 98 04/05/20 00:00 98.3 F 71 22 H 124/54 L 97 Date Exam was Performed: 04/05/20 Time Exam was Performed: 10:58 - Problem List & Annotations (1) CHF exacerbation SNOMED Code(s): 615497394, 19622277219850 Code(s): I50.9 - HEART FAILURE, UNSPECIFIED Status: Acute Priority: High Current Visit: Yes Qualifiers: Qualified Code(s): I50.23 - Acute on chronic systolic (congestive) heart failure (2) Palliative care patient SNOMED Code(s): 108150545, 147427727 Code(s): Z51.5 - ENCOUNTER FOR PALLIATIVE CARE Status: Acute Priority: High Current Visit: Yes (3) Pulmonary edema SNOMED Code(s): 11542135 Code(s): J81.1 - CHRONIC PULMONARY EDEMA Status: Acute Priority: High Current Visit: Yes - Problem List Review Problem List Initiated/Reviewed/Updated: Yes - My Orders Last 24 Hours: My Active Orders 04/05/20 08:45 Enoxaparin [Lovenox] 60 mg SUBCUT DAILY 04/06/20 05:11 BASIC METABOLIC PANEL,BMP [CHEM] AM CBC WITH AUTO DIFF [HEME] AM PRO B-TYPE NATRIUR PEPT,BNPPRO [CHEM] Routine TROPONIN I [CHEM] AM - Assessment Assessment:: CHF exacerbation Elevated d-dimer Elevated troponin - trending downwards - Plan Plan:: Aylin is doing well today. Troponin has decreased by half since yesterday. Currently has no pain. Patient has been active today. Denies any concerns. Chest x-ray completed and dose show interval clearing of infiltrates bilaterally. Stable Cardiomegaly. Creatinine has improved today as well. Discussed with Dr. Crowley patient's current status. Will d/c Clonidine and continue to give 60mg of Lovenox SC daily. Will repeat laboratory work tomorrow morning.
[2020-04-05] MEDS: Aspirin 81 MG Tab.EC PO SCH (20:01)
[2020-04-06] MEDS: Nitroglycerin 2% Oint 1 GM UD Packet TOP SCH ×3 (02:39→18:14)
[2020-04-06] MEDS: Furosemide 40 MG/4 ML VIAL IVPUSH SCH ×2 (07:35→15:57)
[2020-04-06] MEDS: metFORMIN 500 MG Tab PO SCH ×2 (07:35→18:13)
[2020-04-06] MEDS: Enoxaparin 60 MG/0.6 ML Syringe SUBCUT SCH (07:35)
[2020-04-06] MEDS: Ferrous Sulfate 324 MG Tab.EC PO SCH ×2 (07:35→20:29)
[2020-04-06] MEDS: Potassium Chloride 10 MEQ Tab.ER PO SCH (07:35)
[2020-04-06] MEDS: Losartan 25 MG Tab PO SCH ×2 (07:36→20:28)
[2020-04-06] MEDS: Cholecalciferol (Vitamin D3) 25 MCG Tab PO SCH (07:36)
--- NOTE | 2020-04-06 11:02 | PCM.PN ---
- General Info Date of Service: 04/06/20 Functional Status: Reports: Pain Controlled, Other (no pain) - Review of Systems General: Reports: Weakness, Fatigue HEENT: Reports: No Symptoms Pulmonary: Reports: Shortness of Breath Cardiovascular: Reports: Dyspnea on Exertion. Denies: Chest Pain, Edema, Lightheadedness Gastrointestinal: Denies: Abdominal Pain, Diarrhea Genitourinary: Reports: Frequency Musculoskeletal: Reports: No Symptoms Neurological: Reports: No Symptoms Psychiatric: Reports: No Symptoms - Patient Data Vitals - Most Recent: Last Vital Signs Temp 97.8 F 04/06/20 08:00 Pulse 66 04/06/20 02:55 Resp 20 04/06/20 08:00 BP 145/68 H 04/06/20 08:00 Pulse Ox 97 04/06/20 08:00 Weight - Most Recent: 124 lb I&O - Last 24 Hours: Intake & Output 04/05/20 04/06/20 04/06/20 22:59 06:59 14:59 Intake Total 400 300 405 Output Total 1550 850 Balance -1150 -550 405 Lab Results Last 24 Hours: Laboratory Results - last 24 hr 04/05/20 04/06/20 04/06/20 Range/Units 20:10 05:11 07:00 WBC 7.8 (5.0-10.0) 10^3/uL RBC 3.88 L (4.00-5.50) 10^6/uL Hgb 11.7 L (12.0-16.0) g/dL Hct 36.2 L (37.0-47.0) % MCV 93.3 (82.0-94.0) fL MCH 30.2 (27.0-32.0) pg MCHC 32.3 L (33.0-38.0) g/dL RDW Coeff of Leilani 13.3 (11.0-15.0) % Plt Count 212 (150-400) 10^3/uL Neut % (Auto) 59.9 (35-85) % Lymph % (Auto) 25.8 (10-55) % [place] % (Auto) 13.2 (0-16) % Eos % (Auto) 1.0 (0-5) % Baso % (Auto) 0.1 (0-3) % Neut # (Auto) 4.69 (1.80-7.00) 10^3/uL Lymph # (Auto) 2.02 (1.00-4.80) 10^3/uL [place] # (Auto) 1.03 H (0.00-0.80) 10^3/uL Eos # (Auto) 0.08 (0.00-0.45) 10^3/uL Baso # (Auto) 0.01 10^3/uL Sodium 139 (136-145) mEq/L Potassium 4.0 (3.5-5.0) mEq/L Chloride 100 (98-106) mEq/L Carbon Dioxide 32 (21-32) mmol/L BUN 40 H (7-18) mg/dL Creatinine 1.4 H (0.6-1.0) mg/dL Est Cr Clr Drug Dosing 23.52 mL/min Estimated GFR (MDRD) 35 L (>=60) mL/min Glucose 148 H (75-99) mg/dL POC Glucose 203 H (75-105) mg/dl Calcium 9.5 (8.4-10.1) mg/dL Troponin I 10.281 H* (0.00-0.06) ng/mL NT-Pro-B Natriuret Pep 10852 H (0-1000) pg/mL Med Orders - Current: Current Medications Acetaminophen (Tylenol) 650 mg PO Q4H PRN PRN Reason: Pain (Mild 1-3)/fever Aspirin (Halfprin) 81 mg PO BEDTIME [facility] Last Admin: 04/05/20 20:01 Dose: 81 mg Documented by: Bisoprolol Fumarate/HCTZ (Ziac 5-6.25 Mg) 1 tab PO QAM [facility] Last Admin: 04/06/20 07:36 Dose: 1 tab Documented by: Cholecalciferol (Vitamin D3) 125 mcg PO DAILY [facility] Last Admin: 04/06/20 07:36 Dose: 125 mcg Documented by: Enoxaparin Sodium (Lovenox) 60 mg SUBCUT DAILY [facility] Last Admin: 04/06/20 07:35 Dose: 60 mg Documented by: Ferrous Sulfate (Ferrous Sulfate) 324 mg PO BID [facility] Last Admin: 04/06/20 07:35 Dose: 324 mg Documented by: Furosemide (Lasix) 40 mg IVPUSH BIDDIURETIC [facility] Last Admin: 04/06/20 07:35 Dose: 40 mg Documented by: Losartan Potassium (Cozaar) 50 mg PO BID [facility] Last Admin: 04/06/20 07:36 Dose: 50 mg Documented by: Magnesium Oxide (Magnesium Oxide) 250 mg PO BID@1000,2200 [facility] Last Admin: 04/06/20 10:21 Dose: 250 mg Documented by: Metformin HCl (Glucophage) 500 mg PO BIDMEALS [facility] Last Admin: 04/06/20 07:35 Dose: 500 mg Documented by: Nitroglycerin (Nitro-Bid 2%) 0 gm TOP Q8H [facility] Last Admin: 04/06/20 10:21 Dose: 1 gm Documented by: Ondansetron HCl (Zofran Odt) 4 mg PO Q4H PRN PRN Reason: nausea, able to take PO Ondansetron HCl (Zofran) 4 mg IV Q4H PRN PRN Reason: Nausea/Vomiting Potassium Chloride (Klor-Con 10) 20 meq PO DAILY [facility] Last Admin: 04/06/20 07:35 Dose: 20 meq Documented by: Sodium Chloride (Saline Flush) 10 ml FLUSH ASDIRECTED PRN PRN Reason: Keep Vein Open Discontinued Medications Albuterol/Ipratropium (Duoneb 3.0-0.5 Mg/3 Ml) Confirm Administered Dose 3 ml .ROUTE .STK-MED ONE Stop: 04/04/20 05:40 Last Admin: 04/04/20 06:37 Dose: Not Given Documented by: Albuterol/Ipratropium (Duoneb 3.0-0.5 Mg/3 Ml) 3 ml NEB ONETIME ONE Stop: 04/04/20 06:01 Last Admin: 04/04/20 05:50 Dose: 3 ml Documented by: Clonidine HCl (Catapres) 0.1 mg PO BID [facility] Last Admin: 04/05/20 07:33 Dose: 0.1 mg Documented by: Enoxaparin Sodium (Lovenox) 80 mg SUBCUT NOW ONE Stop: 04/04/20 09:02 Last Admin: 04/04/20 10:22 Dose: Not Given Documented by: Enoxaparin Sodium (Lovenox) 60 mg SUBCUT NOW ONE Stop: 04/04/20 09:38 Last Admin: 04/04/20 10:55 Dose: 60 mg Documented by: Furosemide (Lasix) Confirm Administered Dose 40 mg .ROUTE .STK-MED ONE Stop: 04/04/20 05:53 Last Admin: 04/04/20 06:37 Dose: Not Given Documented by: Furosemide (Lasix) 40 mg IVPUSH ONETIME ONE Stop: 04/04/20 06:09 Last Admin: 04/04/20 06:12 Dose: 40 mg Documented by: Furosemide (Lasix) 40 mg IVPUSH BID [facility] Last Admin: 04/05/20 07:32 Dose: 40 mg Documented by: Nitroglycerin/Dextrose (Nitroglycerin 25 Mg/D5w 250 Ml) 25 mg in 250 mls @ 6 mls/hr IV TITRATE LANIE; Protocol Last Infusion: 04/04/20 07:15 Dose: 5 mcg/min, 3 mls/hr Documented by: Methylprednisolone Sodium Succinate (Solu-Medrol) Confirm Administered Dose 125 mg .ROUTE .STK-MED ONE Stop: 04/04/20 05:53 Last Admin: 04/04/20 06:38 Dose: Not Given Documented by: Methylprednisolone Sodium Succinate (Solu-Medrol) 125 mg IVPUSH ONETIME ONE Stop: 04/04/20 06:09 Last Admin: 04/04/20 06:12 Dose: 125 mg Documented by: Morphine Sulfate (Morphine) Confirm Administered Dose 2 mg .ROUTE .STK-MED ONE Stop: 04/04/20 05:54 Last Admin: 04/04/20 06:38 Dose: Not Given Documented by: Morphine Sulfate (Morphine) 1 mg IVPUSH ONETIME ONE Stop: 04/04/20 06:09 Last Admin: 04/04/20 06:12 Dose: 1 mg Documented by: Nitroglycerin (Nitro-Bid 2%) 0 gm TOP Q8H [facility] Non-Formulary Medication (Ubidecarenone [Co Q-10]) 100 mg PO BID [facility] - Exam General: Alert, Oriented, No Acute Distress Lungs: Clear to Auscultation, Normal Respiratory Effort. No: Crackles Cardiovascular: Regular Rate, Regular Rhythm, Murmurs GI/Abdominal Exam: Normal Bowel Sounds, Soft, Non-Tender, No Organomegaly Extremities: Normal Inspection, Non-Tender, No Pedal Edema Skin: Warm, Dry, Intact Psy/Mental Status: Alert, Normal Affect, Normal Mood Sepsis Event Note - Evaluation Sepsis Screening Result: No Definite Risk - Focused Exam Vital Signs: Vital Signs Temp Pulse Resp BP BP Pulse Ox 04/06/20 08:00 97.8 F 20 145/68 H 97 04/06/20 07:36 145/68 H 04/06/20 02:55 98.0 F 66 18 137/63 96 04/05/20 22:59 97.2 F 74 18 130/57 L 95 Date Exam was Performed: 04/06/20 Time Exam was Performed: 10:56 - Problem List & Annotations (1) CHF exacerbation SNOMED Code(s): 536882550, 74333482495097 Code(s): I50.9 - HEART FAILURE, UNSPECIFIED Status: Acute Priority: High Current Visit: Yes Qualifiers: Qualified Code(s): I50.23 - Acute on chronic systolic (congestive) heart failure (2) Palliative care patient SNOMED Code(s): 409999904, 701631019 Code(s): Z51.5 - ENCOUNTER FOR PALLIATIVE CARE Status: Acute Priority: High Current Visit: Yes (3) Pulmonary edema SNOMED Code(s): 84557748 Code(s): J81.1 - CHRONIC PULMONARY EDEMA Status: Acute Priority: High Current Visit: Yes (4) Elevated troponin SNOMED Code(s): 802325547, 693362817, 351213621 Code(s): R79.89 - OTHER SPECIFIED ABNORMAL FINDINGS OF BLOOD CHEMISTRY Status: Acute Current Visit: Yes - Problem List Review Problem List Initiated/Reviewed/Updated: Yes - Assessment Assessment:: CHF exacerbation Elevated d-dimer Elevated troponin - trending downwards - Plan Plan:: Aylin is doing well today. Troponin has decreased by half since yesterday. Currently has no pain. Patient has been active today. Denies any concerns. Chest x-ray completed and does show interval clearing of infiltrates bilaterally. Stable Cardiomegaly. Creatinine has improved today as well. Discussed with Dr. Crowley patient's current status. Will d/c Clonidine and continue to give 60mg of Lovenox SC daily. Will repeat laboratory work tomorrow morning. Aylin continues to improved daily. Currently down 4 lbs since admission. Will continue with IV Lasix for 1 more day and then consider switching to oral. Physical therapy to work with ambulation and strengthening. Creatinine down to 1.4 today. Troponin and BNP continue to improve. Will repeat chest x-ray tomorrow as well.
[2020-04-06] MEDS: Aspirin 81 MG Tab.EC PO SCH (20:28)
[2020-04-07] MEDS: Nitroglycerin 2% Oint 1 GM UD Packet TOP SCH ×3 (03:46→17:13)
[2020-04-07] MEDS: Potassium Chloride 10 MEQ Tab.ER PO SCH (08:09)
[2020-04-07] MEDS: Ferrous Sulfate 324 MG Tab.EC PO SCH ×2 (08:09→20:07)
[2020-04-07] MEDS: Losartan 25 MG Tab PO SCH ×2 (08:09→20:07)
[2020-04-07] MEDS: metFORMIN 500 MG Tab PO SCH ×2 (08:10→17:12)
[2020-04-07] MEDS: Enoxaparin 60 MG/0.6 ML Syringe SUBCUT SCH (08:11)
[2020-04-07] MEDS: Cholecalciferol (Vitamin D3) 25 MCG Tab PO SCH (08:11)
[2020-04-07] MEDS: Furosemide 40 MG/4 ML VIAL IVPUSH SCH (08:13)
--- NOTE | 2020-04-07 13:00 | PCM.PN ---
- General Info Date of Service: 04/07/20 Subjective Update: Patient states she is feeling well. Denies any symptoms presently. Functional Status: Reports: Pain Controlled - Review of Systems General: Reports: No Symptoms HEENT: Reports: No Symptoms Pulmonary: Reports: No Symptoms, Other (chronic shortness of breath) Cardiovascular: Denies: Chest Pain, Palpitations, Orthopnea, Lightheadedness Gastrointestinal: Reports: No Symptoms Genitourinary: Reports: No Symptoms Musculoskeletal: Reports: No Symptoms Neurological: Reports: No Symptoms - Patient Data Vitals - Most Recent: Last Vital Signs Temp 98.5 F 04/07/20 12:00 Pulse 72 04/07/20 12:00 Resp 20 04/07/20 12:00 BP 113/60 04/07/20 12:00 Pulse Ox 94 L 04/07/20 12:00 Weight - Most Recent: 128 lb 1.6 oz I&O - Last 24 Hours: Intake & Output 04/06/20 04/07/20 04/07/20 22:59 06:59 14:59 Intake Total 500 1000 340 Output Total 1000 500 700 Balance -500 500 -360 Lab Results Last 24 Hours: Laboratory Results - last 24 hr 04/07/20 04/07/20 04/07/20 Range/Units 07:00 07:00 08:02 WBC 7.7 (5.0-10.0) 10^3/uL RBC 4.29 (4.00-5.50) 10^6/uL Hgb 13.1 (12.0-16.0) g/dL Hct 39.7 (37.0-47.0) % MCV 92.5 (82.0-94.0) fL MCH 30.5 (27.0-32.0) pg MCHC 33.0 (33.0-38.0) g/dL RDW Coeff of Leilani 13.4 (11.0-15.0) % Plt Count 219 (150-400) 10^3/uL Neut % (Auto) 52.9 (35-85) % Lymph % (Auto) 31.4 (10-55) % Wheeler % (Auto) 14.1 (0-16) % Eos % (Auto) 1.3 (0-5) % Baso % (Auto) 0.3 (0-3) % Neut # (Auto) 4.10 (1.80-7.00) 10^3/uL Lymph # (Auto) 2.43 (1.00-4.80) 10^3/uL Wheeler # (Auto) 1.09 H (0.00-0.80) 10^3/uL Eos # (Auto) 0.10 (0.00-0.45) 10^3/uL Baso # (Auto) 0.02 10^3/uL Sodium 137 (136-145) mEq/L Potassium 4.2 (3.5-5.0) mEq/L Chloride 98 (98-106) mEq/L Carbon Dioxide 31 (21-32) mmol/L BUN 42 H (7-18) mg/dL Creatinine 1.4 H (0.6-1.0) mg/dL Est Cr Clr Drug Dosing 23.52 mL/min Estimated GFR (MDRD) 35 L (>=60) mL/min Glucose 156 H (75-99) mg/dL POC Glucose 177 H (75-105) mg/dl Calcium 9.7 (8.4-10.1) mg/dL Troponin I 5.518 H* (0.00-0.06) ng/mL NT-Pro-B Natriuret Pep 5919 H (0-1000) pg/mL Med Orders - Current: Current Medications Acetaminophen (Tylenol) 650 mg PO Q4H PRN PRN Reason: Pain (Mild 1-3)/fever Aspirin (Halfprin) 81 mg PO BEDTIME [facility] Last Admin: 04/06/20 20:28 Dose: 81 mg Documented by: Bisoprolol Fumarate/HCTZ (Ziac 5-6.25 Mg) 1 tab PO QAM [facility] Last Admin: 04/07/20 08:12 Dose: 1 tab Documented by: Cholecalciferol (Vitamin D3) 125 mcg PO DAILY [facility] Last Admin: 04/07/20 08:11 Dose: 125 mcg Documented by: Enoxaparin Sodium (Lovenox) 60 mg SUBCUT DAILY [facility] Last Admin: 04/07/20 08:11 Dose: 60 mg Documented by: Ferrous Sulfate (Ferrous Sulfate) 324 mg PO BID [facility] Last Admin: 04/07/20 08:09 Dose: 324 mg Documented by: Furosemide (Lasix) 80 mg PO DAILY [facility] Losartan Potassium (Cozaar) 50 mg PO BID [facility] Last Admin: 04/07/20 08:09 Dose: 50 mg Documented by: Magnesium Oxide (Magnesium Oxide) 250 mg PO BID@1000,2200 [facility] Last Admin: 04/07/20 10:02 Dose: 250 mg Documented by: Metformin HCl (Glucophage) 500 mg PO BIDMEALS [facility] Last Admin: 04/07/20 08:10 Dose: 500 mg Documented by: Nitroglycerin (Nitro-Bid 2%) 0 gm TOP Q8H [facility] Last Admin: 04/07/20 10:02 Dose: 1 gm Documented by: Ondansetron HCl (Zofran Odt) 4 mg PO Q4H PRN PRN Reason: nausea, able to take PO Ondansetron HCl (Zofran) 4 mg IV Q4H PRN PRN Reason: Nausea/Vomiting Potassium Chloride (Klor-Con 10) 20 meq PO DAILY [facility] Last Admin: 04/07/20 08:09 Dose: 20 meq Documented by: Sodium Chloride (Saline Flush) 10 ml FLUSH ASDIRECTED PRN PRN Reason: Keep Vein Open Discontinued Medications Albuterol/Ipratropium (Duoneb 3.0-0.5 Mg/3 Ml) Confirm Administered Dose 3 ml .ROUTE .STK-MED ONE Stop: 04/04/20 05:40 Last Admin: 04/04/20 06:37 Dose: Not Given Documented by: Albuterol/Ipratropium (Duoneb 3.0-0.5 Mg/3 Ml) 3 ml NEB ONETIME ONE Stop: 04/04/20 06:01 Last Admin: 04/04/20 05:50 Dose: 3 ml Documented by: Clonidine HCl (Catapres) 0.1 mg PO BID [facility] Last Admin: 04/05/20 07:33 Dose: 0.1 mg Documented by: Enoxaparin Sodium (Lovenox) 80 mg SUBCUT NOW ONE Stop: 04/04/20 09:02 Last Admin: 04/04/20 10:22 Dose: Not Given Documented by: Enoxaparin Sodium (Lovenox) 60 mg SUBCUT NOW ONE Stop: 04/04/20 09:38 Last Admin: 04/04/20 10:55 Dose: 60 mg Documented by: Furosemide (Lasix) Confirm Administered Dose 40 mg .ROUTE .STK-MED ONE Stop: 04/04/20 05:53 Last Admin: 04/04/20 06:37 Dose: Not Given Documented by: Furosemide (Lasix) 40 mg IVPUSH ONETIME ONE Stop: 04/04/20 06:09 Last Admin: 04/04/20 06:12 Dose: 40 mg Documented by: Furosemide (Lasix) 40 mg IVPUSH BID [facility] Last Admin: 04/05/20 07:32 Dose: 40 mg Documented by: Furosemide (Lasix) 40 mg IVPUSH BIDDIURETIC [facility] Last Admin: 04/07/20 08:13 Dose: 40 mg Documented by: Nitroglycerin/Dextrose (Nitroglycerin 25 Mg/D5w 250 Ml) 25 mg in 250 mls @ 6 mls/hr IV TITRATE [facility]; Protocol Last Infusion: 04/04/20 07:15 Dose: 5 mcg/min, 3 mls/hr Documented by: Methylprednisolone Sodium Succinate (Solu-Medrol) Confirm Administered Dose 125 mg .ROUTE .STK-MED ONE Stop: 04/04/20 05:53 Last Admin: 04/04/20 06:38 Dose: Not Given Documented by: Methylprednisolone Sodium Succinate (Solu-Medrol) 125 mg IVPUSH ONETIME ONE Stop: 04/04/20 06:09 Last Admin: 04/04/20 06:12 Dose: 125 mg Documented by: Morphine Sulfate (Morphine) Confirm Administered Dose 2 mg .ROUTE .STK-MED ONE Stop: 04/04/20 05:54 Last Admin: 04/04/20 06:38 Dose: Not Given Documented by: Morphine Sulfate (Morphine) 1 mg IVPUSH ONETIME ONE Stop: 04/04/20 06:09 Last Admin: 04/04/20 06:12 Dose: 1 mg Documented by: Nitroglycerin (Nitro-Bid 2%) 0 gm TOP Q8H [facility] Non-Formulary Medication (Ubidecarenone [Co Q-10]) 100 mg PO BID [facility] - Exam General: Alert, Oriented Neck: Supple Lungs: Clear to Auscultation, Normal Respiratory Effort Cardiovascular: Regular Rate, Regular Rhythm, Murmurs GI/Abdominal Exam: Normal Bowel Sounds, Soft, Non-Tender, No Organomegaly, No Di stention Sepsis Event Note - Evaluation Sepsis Screening Result: No Definite Risk - Focused Exam Vital Signs: Vital Signs Temp Pulse Resp BP BP Pulse Ox 04/07/20 12:00 98.5 F 72 20 113/60 94 L 04/07/20 08:09 147/59 H 04/07/20 08:00 98.2 F 82 18 147/59 H 95 Date Exam was Performed: 04/07/20 Time Exam was Performed: 12:55 - Problem List & Annotations (1) CHF exacerbation SNOMED Code(s): 755027202, 02519120130912 Code(s): I50.9 - HEART FAILURE, UNSPECIFIED Status: Acute Priority: High Current Visit: Yes Qualifiers: Qualified Code(s): I50.23 - Acute on chronic systolic (congestive) heart failure (2) Palliative care patient SNOMED Code(s): 254466708, 483183436 Code(s): Z51.5 - ENCOUNTER FOR PALLIATIVE CARE Status: Acute Priority: High Current Visit: Yes (3) Pulmonary edema SNOMED Code(s): 13019434 Code(s): J81.1 - CHRONIC PULMONARY EDEMA Status: Acute Priority: High Current Visit: Yes (4) Elevated troponin SNOMED Code(s): 840642877, 723043158, 173692722 Code(s): R79.89 - OTHER SPECIFIED ABNORMAL FINDINGS OF BLOOD CHEMISTRY Status: Acute Current Visit: Yes - Problem List Review Problem List Initiated/Reviewed/Updated: Yes - My Orders Last 24 Hours: My Active Orders 04/07/20 08:40 Consult to Dietary [Consult to Dental Technician] [CONS] Routine 04/07/20 Lunch Sodium Restricted Diet [DIET] 04/07/20 12:30 Echo Comp wo Cont [US] Routine 04/08/20 08:00 Furosemide [Lasix] 80 mg PO DAILY - Assessment Assessment:: CHF exacerbation Elevated d-dimer Elevated troponin - trending downwards - Plan Plan:: Aylin is doing well today. Troponin has decreased by half since yesterday. Currently has no pain. Patient has been active today. Denies any concerns. Chest x-ray completed and does show interval clearing of infiltrates bilaterally. Stable Cardiomegaly. Creatinine has improved today as well. Discussed with Dr. Crowley patient's current status. Will d/c Clonidine and continue to give 60mg of Lovenox SC daily. Will repeat laboratory work tomorrow morning. Aylin continues to improved daily. Currently down 4 lbs since admission. Will continue with IV Lasix for 1 more day and then consider switching to oral. Physical therapy to work with ambulation and strengthening. Creatinine down to 1.4 today. Troponin and BNP continue to improve. Will repeat chest x-ray tomorrow as well. Aylin continues to improve on a daily basis. Will increase Lasix to 80mg daily. Dr. Crowley did evaluate Pat this morning and does feel if she continues to do well, will look at discharge in the am. ProBNP continues to trend down. Repeat chest x-ray in am.
[2020-04-07] MEDS: Aspirin 81 MG Tab.EC PO SCH (20:06)
[2020-04-08] MEDS: Nitroglycerin 2% Oint 1 GM UD Packet TOP SCH ×2 (01:05→10:07)
[2020-04-08] MEDS: Ferrous Sulfate 324 MG Tab.EC PO SCH (07:14)
[2020-04-08] MEDS: metFORMIN 500 MG Tab PO SCH (07:14)
[2020-04-08] MEDS: Enoxaparin 60 MG/0.6 ML Syringe SUBCUT SCH (07:14)
[2020-04-08] MEDS: Potassium Chloride 10 MEQ Tab.ER PO SCH (07:18)
[2020-04-08] MEDS: Losartan 25 MG Tab PO SCH (07:20)
[2020-04-08] MEDS: Cholecalciferol (Vitamin D3) 25 MCG Tab PO SCH (07:20)
[2020-04-08] MEDS ORDERED: Furosemide 80 MG Tab PO SCH (08:00)
[2020-04-08 11:21] VITALS: BP 107/65; PULSE 65
--- NOTE | 2020-04-08 17:42 | DISCH ---
DISPOSITION: Home. ADMISSION DIAGNOSES: 1. Respiratory distress. 2. Pulmonary edema. 3. Congestive heart failure exacerbation. 4. Palliative care patient. DISCHARGE DIAGNOSIS: 1. CONGESTIVE HEART FAILURE EXACERBATION, IMPROVED. 2. ELEVATED TROPONIN, QUESTION ACUTE MYOCARDIAL INFARCTION OR [id number] MYOCARDIAL INFARCTION. 3. RESPIRATORY DISTRESS, RESOLVED. HOSPITAL COURSE: Aylin is an 89-year-old female who initially presented to the emergency room with concerns of shortness of breath. Oxygen saturation upon arrival was 75% on room air. Has not had a known history of CHF, but she did have similar symptoms 3 years prior. The patient was admitted to the hospital for close observation. On , repeat cardiac enzymes did elevate up to 39.42. A long discussion with family at that point in time in regard to concerns of acute NV. However, family and both Aylin did not feel the further treatment was appropriate, she has been doing fine and did not like to proceed with transfer at that point in time. The patient's D-dimer was also elevated at 14.13. However, unable to CTA the chest secondary to creatinine level being elevated at 1.8. ProBNP was 3022 on admission, did rise up to 15,295 on the 04/05. Troponin continued to be followed, was 17.345 on the , did drop to 10.281 along with a proBNP of 10,177 on the 4th. Troponin did drop to 5.518 on the 5th with a BNP of 5119. Patient did receive Lasix IV 80 mg total daily, which she did see significant improvement, the patient's symptoms of shortness of breath completely resolved. On discharge, patient's O2 saturation was 97% on room air. The patient remained asymptomatic in regard to any chest pain. EKG did not show any signs of any ST elevation or depression. Chest x-ray was closely followed with latest show no acute pulmonary pathology with minimal cardiomegaly noted. Creatinine level did improve to 1.4 on the 5th. DISCHARGE MEDICATIONS: Resume home medications. We will start Plavix 75 mg daily along with increasing her Lasix to 80 mg p.o. daily. Otherwise, we will resume all home medications. DISCHARGE INSTRUCTIONS: Follow up instructions: The patient will follow up with Dr. Sherman Crowley next week on . DEVORAH/KRYSTEN /[id number]
== END 2020-04-08 14:45 | disposition home or self-care (01) | DRG 282 ==
LOC: CC.ED 05:48 → CC.MS 08:00 → UNDOADMIN 08:00 → CC.MS 08:17
PROVIDERS: ADMIT Physician Assistant Medical; ATTEND Family Medicine
DX: R06.03 Acute respiratory distress (principal); I11.0 Hypertensive heart disease with heart failure; I21.4 Non-ST elevation (NSTEMI) myocardial infarction; J81.1 Chronic pulmonary edema; R53.1 Weakness; R05 Cough; I21.9 Acute myocardial infarction, unspecified; I50.23 Acute on chronic systolic (congestive) heart failure; D68.51 Activated protein C resistance; Z51.5 Encounter for palliative care; Z79.84 Long term (current) use of oral hypoglycemic drugs; Z66 Do not resuscitate; Z20.828 Contact with and (suspected) exposure to other viral communicable diseases; Z88.0 Allergy status to penicillin; Z88.8 Allergy status to other drugs, medicaments and biological substances; Z88.5 Allergy status to narcotic agent; Z79.82 Long term (current) use of aspirin; Z79.899 Other long term (current) drug therapy; Z98.49 Cataract extraction status, unspecified eye; Z85.828 Personal history of other malignant neoplasm of skin
CPT/HCPCS: 36415; 51702; 71045; 71046; 80048; 80053; 82550; 82962; 83615; 83880; 84484; 85025; 85379; 86140; 93005; 93306; 94640; 96365; 96366; 96372; 96375; 97110-GP; 97161-GP; 99285-25; A9270-GY; J1650; J1940; J2270; J2930; J3490; J7620-GY; U0002

== ENCOUNTER 2020-07-30 07:01 | Emergency (ER) | payer MEDICARE, OTHER ==
[2020-07-30] MEDS ORDERED: Furosemide 100 MG/10 ML SDV ONE (07:02)
[2020-07-30] MEDS ORDERED: Furosemide 40 MG/4 ML VIAL ONE (07:02)
[2020-07-30 07:16] VITALS: PULSE 88
[2020-07-30] MEDS ORDERED: Furosemide 40 MG/4 ML VIAL IVPUSH ONE (07:44)
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
[2020-07-30] MEDS ORDERED: cefTRIAXone 2 GM Vial IM ONE (09:01)
[2020-07-30 09:02] VITALS: BP 159/74
[2020-07-30] MEDS ORDERED: cefTRIAXone 2 GM Vial IVPUSH ONE (09:09)
[2020-07-30] MEDS ORDERED: Ondansetron 4 MG/2 ML SDV ONE (10:03)
== END 2020-07-30 10:21 ==
LOC: CC.ED 07:01
DX: N17.9 Acute kidney failure, unspecified (principal); I11.0 Hypertensive heart disease with heart failure; I50.23 Acute on chronic systolic (congestive) heart failure; R74.02 Elevation of levels of lactic acid dehydrogenase [LDH]; M19.90 Unspecified osteoarthritis, unspecified site; Z79.82 Long term (current) use of aspirin; Z88.0 Allergy status to penicillin; Z88.4 Allergy status to anesthetic agent; Z88.5 Allergy status to narcotic agent; Z88.8 Allergy status to other drugs, medicaments and biological substances; Z91.048 Other nonmedicinal substance allergy status; Z79.02 Long term (current) use of antithrombotics/antiplatelets; Z79.84 Long term (current) use of oral hypoglycemic drugs; Z79.899 Other long term (current) drug therapy; Z20.828 Contact with and (suspected) exposure to other viral communicable diseases
CPT/HCPCS: 36415; 51702; 71045; 80053; 81001; 83605; 83735; 83880; 84484; 85025; 85379; 86140; 87040; 93005; 93010; 99285-25; J0696; J1940; J2405; U0002